=== PATIENT | male | born 1950 | race Caucasian/White ===

== ENCOUNTER 2018-10-21 16:30 | Observation (INO) ==
[2018-10-21] MEDS ORDERED: Ondansetron 4 MG/2 ML VIAL IVP PRN (18:15)
[2018-10-21] MEDS: *HR* HYDROcodone/Acet 5/325 mg TABLET PO PRN (19:02)
[2018-10-21] MEDS ORDERED: 0.9 % Sodium Chloride 500 ML IVC ONE (19:04)
[2018-10-21] MEDS: Acetaminophen 325 MG TABLET PO PRN (20:26)
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
[2018-10-21] MEDS ORDERED: *HR* Dextrose 50 % in Water (Syg) 50 ML SYRINGE IVP PRN (21:37)
[2018-10-21] MEDS ORDERED: Naloxone 0.4 MG/ML INJ IVP PRN (21:37)
[2018-10-21] MEDS ORDERED: D5% in Water 1,000 ML IVC PRN (21:37)
[2018-10-21] MEDS ORDERED: Dextrose Gel 15 GM/37.5 ML TUBE PO PRN ×2 (21:37)
[2018-10-21] MEDS ORDERED: Nitroglycerin 0.4 MG TAB.SUBL SL PRN (21:45)
[2018-10-21] MEDS ORDERED: 0.9 % Sodium Chloride 1,000 ML IVC SCH (21:45)
[2018-10-21 22:58] LABS: Estimated Average Glucose 160 mg/dl; Hemoglobin A1C 7.2 %
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
[2018-10-22] MEDS: *HR* HYDROcodone/Acet 5/325 mg TABLET PO PRN ×3 (00:57→17:42)
[2018-10-22 02:04] LABS: Hematocrit 31.1 % (37.5-50.1); Mean Corpuscular HGB Conc 32.2 g/dL (31.6-35.5); Mean Corpuscular Hemoglobin 25.8 pg (28.0-33.3); Mean Corpuscular Volume 80.4 fL (83.0-100.0); Mean Platelet Volume 10.2 fL (9.4-12.4); Platelet Count 189 K/mcL (140-400); Red Blood Count 3.87 M/mcL (4.19-5.50); Red Cell Distribution Width 14.6 % (11.5-14.5)
[2018-10-22 02:18] LABS: INR 1.1; Prothrombin Time 12.3 Seconds (9.4-12.1)
[2018-10-22 02:24] LABS: BUN/Creatinine Ratio 14 (6-26); Blood Urea Nitrogen 18 mg/dL (8-23); Calcium 8.7 mg/dL (8.6-10.3); Carbon Dioxide 24 mEq/L (23-29); Chloride 101 mEq/L (98-107); Glucose 140 mg/dL (70-105); Magnesium 1.4 mg/dL (1.6-2.6); Osmolality,Calculated 284 (280-300); Potassium 4.1 mEq/L (3.5-5.1); Sodium 135 mEq/L (136-145); eGFR For Non-African Americans 56 (> 60)
--- NOTE | 2018-10-22 08:24 | Internal Med Progress Note ---
Hospitalist Progress Note - Encounter Date of Encounter: 10/22/18 Time of Encounter: 08:20 - Subjective Interval History: Doing well, denies much pain, resting in bed, appears very comfortable. No discharge dressings on 2 areas of the left arm due to abrasive injury. He tells me there is no surgery planned today. Labs show what appears to be a microcytic anemia, will need to inquire about prior GI evaluations in the past. - Exam Vitals: Temp Pulse Resp BP Pulse Ox 98.5 F 98 16 137/76 94 10/22/18 08:03 10/22/18 08:03 10/22/18 08:03 10/22/18 08:03 10/22/18 08:03 Exam: Cardiovascular: S1 and S2, regular rate and rhythm, no murmur, no JVD. Pulmonary: Lungs clear to all leon, no tachypnea. Abdomen: Somewhat protuberant, firm, nontender, active bowel sounds, no organomegaly. Lower extremities: Left leg in a splint, moving toes without pain. Toes are warm. No discoloration. Right leg without edema. - Assessment and Plan (1) Crush injury of leg Current Visit: Yes Status: Acute (2) CAD (coronary artery disease) Current Visit: Yes Status: Chronic Assessment and Plan: He appears to have well-maintained ejection fraction of interval records, last intervention was a good urine after ago, therefore we will stop Plavix. (3) Type 2 diabetes mellitus Current Visit: Yes Status: Chronic Assessment and Plan: Appropriate control. (4) DVT prophylaxis Current Visit: Yes Status: Chronic (5) Microcytic anemia Current Visit: Yes Status: Chronic Assessment and Plan: There has been a mild, transient decrease in his hemoglobin, some of this is delusional. We will go and check iron studies. - Time Spent with Patient Total time spent is greater than 50% in coordination of care (as documented) at patient's floor/unit and/or counseling patient: Internal Medicine: Result - Labs CBC & Chem 7: 10/22/18 01:33 10/22/18 01:33 Labs: Short CBC 10/22/18 Range/Units 01:33 WBC 7.8 (4.3-11.1) K/mcL Hgb 10.0 L D (12.9-16.9) g/dL Hct 31.1 L (37.5-50.1) % Plt Count 189 (140-400) K/mcL BMP 10/22/18 01:33 Sodium 135 L Potassium 4.1 Chloride 101 Carbon Dioxide 24 BUN 18 Creatinine 1.28 Glucose 140 H Calcium 8.7 - ABG Interpretation ABG results: PT/INR, D-dimer PT 12.3 Seconds (9.4-12.1) H 10/22/18 01:33 Consult Discharge Plan - Plan Referrals: Channing De Jesus MD [Primary Care Provider] - (1) Crush injury of leg Qualifiers: Encounter type: initial encounter Laterality: left Qualified Code(s): S87.82XA - Crushing injury of left lower leg, initial encounter (2) CAD (coronary artery disease) Qualifiers: Coronary Disease-Associated Artery/Lesion type: bypass graft [place] vs. transplanted heart: [place] heart Associated angina: without angina Qualified Code(s): I25.810 - Atherosclerosis of coronary artery bypass graft(s) without angina pectoris (3) Type 2 diabetes mellitus Qualifiers: Diabetes mellitus exterminator insulin use: without exterminator use Diabetes mellitus complication status: without complication Qualified Code(s): E11.9 - Type 2 diabetes mellitus without complications
[2018-10-22] MEDS: Aspirin Enteric Coated 81 MG Tablet PO SCH (08:43)
[2018-10-22] MEDS: Insulin LISPRO 300 UNITS/3 ML VIAL SQ SCH ×3 (08:46→17:36)
[2018-10-22] MEDS: *HR* Heparin 5,000 UNIT/ML VIAL SQ SCH ×2 (08:47→17:36)
[2018-10-22 09:43] LABS: % Iron Saturation 11 % (20-55); Iron 44 mcg/dL (65-175); Transferrin 284 mg/dL (203-362)
[2018-10-22] MEDS ORDERED: Naloxone 0.4 MG/ML INJ IVP PRN (11:46)
[2018-10-22] MEDS: *HR* OxyCODONE Immed Rel 5 MG TABLET PO PRN ×2 (12:45→19:43)
--- NOTE | 2018-10-22 14:27 | Orthopedics Progress Note ---
Date of Encounter: 10/22/18 Time of Encounter: 14:25 Subjective Principal diagnosis: Left proximal tibia fracture Interval history: 10/22/2018. Patient feeling well today. Complaining of anticipated soreness in the left and right knees. No neurovascular complaints. Vital signs are stable. Patient is afebrile. Left posterior splint intact. Excellent sensation in the left toes. Toe motion good. Right knee without effusion. Tender especially along the lateral side of the right knee. Left hand with improved function. Impression: Left proximal tibia fracture, crush injury/contusion right leg Recommendation: At this time no surgical intervention is planned. We will start physical therapy for ambulation training with nonweightbearing on the left lower extremity. When the patient is stable for discharge, will need to continue with the weightbearing limitations. Will need follow-up with me in about 10 days' time. Continue with VTE prophylaxis. Objective Vital signs: Vital Signs Temp Pulse Resp BP Pulse Ox 10/22/18 11:57 97.8 F 67 16 149/83 93 10/22/18 08:03 98.5 F 98 16 137/76 94 10/22/18 04:19 97.9 F 96 16 128/79 93 10/21/18 23:36 98.2 F 101 14 102/66 96 10/21/18 19:00 96/61 10/21/18 18:16 97.4 F L 98 16 100/65 98 Intake and Output 10/21/18 10/22/18 10/22/18 23:59 07:59 15:59 Intake Total 300 / 300 0 / 0 200 / 200 Output Total 0 / 0 575 / 575 700 / 700 Balance 300 / 300 -575 / -575 -500 / -500 Intake: Oral 300 / 300 0 / 0 200 / 200 Output: Urine 0 / 0 575 / 575 700 / 700 Other: Meal Lunch Percent of Meal Consumed 90% Weight 80.2 kg 80.36 kg Blood Glucose* 156 174 Patient Weight 10/22/18 23:59 Weight 80.36 kg - Labs CBC & BMP: 10/22/18 01:33 10/22/18 01:33 Labs: Abnormal lab results RBC 3.87 M/mcL (4.19-5.50) L 10/22/18 01:33 Hgb 10.0 g/dL (12.9-16.9) L D 10/22/18 01:33 Hct 31.1 % (37.5-50.1) L 10/22/18 01:33 MCV 80.4 fL (83.0-100.0) L 10/22/18 01:33 MCH 25.8 pg (28.0-33.3) L 10/22/18 01:33 RDW 14.6 % (11.5-14.5) H 10/22/18 01:33 PT 12.3 Seconds (9.4-12.1) H 10/22/18 01:33 Sodium 135 mEq/L (136-145) L 10/22/18 01:33 Est GFR (Non-Af Amer) 56 (> 60) L 10/22/18 01:33 Glucose 140 mg/dL (70-105) H 10/22/18 01:33 POC Glucose 152 mg/dL (70-99) H 10/21/18 23:30 Hemoglobin A1c 7.2 % (-5.6) H 10/21/18 22:01 Magnesium 1.4 mg/dL (1.6-2.6) L 10/22/18 01:33 Iron 44 mcg/dL (65-175) L 10/22/18 01:33 % Saturation 11 % (20-55) L 10/22/18 01:33 Creatine Kinase 349 Units/L (30-223) H 10/22/18 01:33 Consult Discharge Plan - Plan Referrals: Channing De Jesus MD [Primary Care Provider] -
[2018-10-22] MEDS: 0.9 % Sodium Chloride 1,000 ML IVC SCH (16:04)
[2018-10-22] MEDS ORDERED: Famotidine 20 MG/2 ML VIAL IVP ONE (21:47)
[2018-10-22] MEDS ORDERED: *HR* EPINEPHrine 1 MG/ML AMPUL IM ONE (21:57)
[2018-10-22] MEDS ORDERED: Ketorolac 30 MG/ML VIAL IVP PRN (22:01)
--- NOTE | 2018-10-22 22:18 | Event Note ---
Date of Encounter: 10/22/18 Time of Encounter: 21:30 Notified by nurse that patient was stated that he felt that his throat was swelling up and he was itchy. He had received a dose of oxycodone about 1 hour previously. He has a history of getting pruritus after oxycodone but denies having breathing difficulties before. I asked the nurse to give a dose of benadryl 25mg IV and get epinephrine ready. I assessed the patient and performed an exam. He was in no acute distress and I did not note any rash/hives. Lungs sounds were clear and I did not note stridor or wheezing. Oral exam within normal limits, no tongue swelling. I placed him on oxygen and got a bedside pulse ox set up. Patient still had the sensation of swelling so we went ahead and gave epinephrine as well as the Benadryl. We also gave 20mg famotidine IV as well. Patient stated soon after that he was starting to feel better, and his throat was no longer feeling like it was swelling up. We will continue to monitor oxygen saturation and vitals closely. We will hold off on methylprednisolone for now. Patient's family at bedside, all questions answered. We will also hold on further narcotic pain medication and start Toradol IV as needed.
[2018-10-22] MEDS: methylPREDNISolone 125 MG/2 ML VIAL IVP SCH (23:03)
[2018-10-23] MEDS: methylPREDNISolone 125 MG/2 ML VIAL IVP SCH ×2 (05:20→13:08)
[2018-10-23] MEDS: *HR* Heparin 5,000 UNIT/ML VIAL SQ SCH (05:22)
[2018-10-23] MEDS: 0.9 % Sodium Chloride 1,000 ML IVC SCH (05:30)
[2018-10-23] MEDS ORDERED: Famotidine 20 MG/2 ML VIAL IVP SCH (06:00)
[2018-10-23] MEDS: Acetaminophen 325 MG TABLET PO PRN (07:26)
[2018-10-23] MEDS: Insulin LISPRO 300 UNITS/3 ML VIAL SQ SCH ×2 (09:21→13:08)
[2018-10-23] MEDS: Aspirin Enteric Coated 81 MG Tablet PO SCH (09:22)
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
--- NOTE | 2018-10-23 14:49 | Physician Discharge Referral ---
<Wei Dowell - Last Filed: 10/23/18 14:47> Home Health/Hosp Referral Info Transfer to: Home Health Attending Provider: Rose Provider in Charge Post Discharge: PCP - Diagnosis (1) Crush injury of leg Priority: Primary Status: Acute (2) Left tibial fracture Priority: Primary Status: Acute (3) Microcytic anemia Priority: Secondary Status: Chronic (4) CAD (coronary artery disease) Priority: Secondary Status: Chronic (5) Type 2 diabetes mellitus Priority: Secondary Status: Chronic (6) DVT prophylaxis Priority: Secondary Status: Chronic - Respiratory Orders Smoking Cessation: Smoking cessation has been advised. For more information, call the [place] Tobacco Quit Line at 6-622-AROZ-NOW. - Diet/Nutrition Diet/Nutrition Orders: Cardiac - Activity Activity Orders: Walker - Services Needed Following services are medically necessary services: Nursing, Physical Therapy, Occupational Therapy - Transfer Medications Prescriptions: RX: Acetaminophen [Tylenol] 650 mg PO Q6HR PRN 14 Days #112 tablet PRN Reason: Mild Pain/Fever Home Medications: RX: Aspirin [Lo-Dose Aspirin EC] 81 mg PO DAILY 11/17/16 [History] RX: Duloxetine HCl [Cymbalta] 60 mg PO DAILY 11/17/16 [History] RX: Lisinopril-HCTZ 20-12.5 [Prinzide 20-12.5] 1 tab PO DAILY 11/17/16 [History] RX: Metoprolol [Lopressor] 12.5 mg PO BID 11/17/16 [History] RX: Nitroglycerin [Nitrostat] 0.4 mg SL Q5M PRN 11/17/16 [History] RX: Simvastatin [Zocor] 40 mg PO HS 11/17/16 [History] RX: Cranberry Fruit [Cranberry] 3,200 mg PO DAILY 10/21/18 [History] RX: Esomeprazole Magnesium [Nexium] 40 mg PO DAILY 10/21/18 [History] RX: Tamsulosin HCl [Flomax] 0.4 mg PO DAILY 10/21/18 [History] RX: Ascorbic Acid [Vitamin C] 500 mg PO DAILY 10/22/18 [History] RX: Metformin HCl [Metformin ER Osmotic] 1,000 mg PO BID 10/22/18 [History] RX: Acetaminophen [Tylenol] 650 mg PO Q6HR PRN 14 Days #112 tablet 10/23/18 [Rx] Allergies/Adverse Reactions: Allergy/AdvReac Type Severity Reaction Status Date / Time oxycodone Allergy Anaphylaxis Verified 10/22/18 22:15 sulfamethoxazole Allergy Hives Verified 10/22/18 16:46 [From Bactrim] trimethoprim [From Bactrim] Allergy Hives Verified 10/22/18 16:46 metformin AdvReac Heartburn Verified 10/22/18 16:46 Certification: Further, I certify that my clinical findings support that this patient is homebound (i.e. absences from home require considerable and taxing effort and are for medical reasons or orthodoxy services or infrequently or short duration when for other reasons) because: Homebound Reason: Patient requires assistance of a person or device to safely leave home, Leaving home requires considerable and taxing effort due to condition Attestation: My signature below is to certify that this patient is under my care and that I, or nurse practitioner, or a physician's fleet assistant working with me, has a [id number] encounter with this patient. <Kenny oRse - Last Filed: 10/23/18 19:11> - Diagnosis (1) Crush injury of leg Status: Acute (2) CAD (coronary artery disease) Status: Chronic (3) Type 2 diabetes mellitus Status: Chronic (4) DVT prophylaxis Status: Chronic (5) Microcytic anemia Status: Chronic (6) Left tibial fracture Status: Acute - Respiratory Orders Smoking Cessation: Smoking cessation has been advised. For more information, call the [place] Tobacco Quit Line at 3-253-KPNJ-NOW. Certification: Further, I certify that my clinical findings support that this patient is homebound (i.e. absences from home require considerable and taxing effort and are for medical reasons or orthodoxy services or infrequently or short duration when for other reasons) because: Attestation: My signature below is to certify that this patient is under my care and that I, or nurse practitioner, or a physician's fleet assistant working with me, has a [id number] encounter with this patient. I examined this patient and my medical decision-making was reviewed with the Resident Physician. I agree with the documented findings, disposition and treatment plan as described except to the extent set forth below.
[2018-10-23 16:01] VITALS: BP 128/72
--- NOTE | 2018-10-25 17:35 | Electrocardiograph Report ---
[address] [place] [address] Test Date: 2018-10-21 Pat Name: Karel Higgins Department: 114 Room: [facility] Gender: M [employer] Machine: SHI : [id number] Requested By: Gallo Velazco Order Number: [id number] Reading MD: Laila Steven Measurements Intervals [place] Rate: 95 P: 28 NM: 150 QRS: 66 QRSD: 95 T: 34 QT: 336 QTc: 388 Interpretive Statements SINUS RHYTHM WITH SINUS ARRHYTHMIA POSSIBLE INFERIOR MYOCARDIAL INFARCTION, PROBABLY OLD WITH POSTERIOR EXTENSION Electronically Signed On 10-25-2018 17:33:44 EDT by Laila Steven
== END 2018-10-23 16:14 | disposition home health service (06) ==
LOC: 3NENU
PROVIDERS: ADMIT Internal Medicine; ATTEND Internal Medicine

== ENCOUNTER 2021-07-16 02:29 | Observation (INO) ==
[2021-07-16] MEDS ORDERED: Ondansetron 4 MG/2 ML VIAL IVP PRN (07:40)
[2021-07-16] MEDS ORDERED: Melatonin 3 MG TABLET PO PRN (07:40)
[2021-07-16] MEDS ORDERED: Naloxone 0.4 MG/ML INJ IVP PRN (07:40)
[2021-07-16] MEDS ORDERED: *HR* Heparin 5,000 UNIT/ML VIAL IVP PRN ×2 (07:53)
[2021-07-16] MEDS ORDERED: *HR* Heparin 5,000 UNIT/ML VIAL IVP ONE (07:53)
[2021-07-16] MEDS ORDERED: Heparin 25,000 UNIT/250 ML 25,000 UNIT/250 ML IV.SOLN IVC SCH (08:00)
[2021-07-16] MEDS ORDERED: D5% in Water 1,000 ML IVC PRN (08:15)
[2021-07-16] MEDS ORDERED: Dextrose Gel 15 GM/37.5 ML TUBE PO PRN ×2 (08:15)
[2021-07-16] MEDS ORDERED: *HR* Dextrose 50 % in Water (Syg) 50 ML SYRINGE IVP PRN (08:15)
[2021-07-16 08:49] LABS: Hematocrit 39.3 % (37.5-50.1); Hemoglobin 13.4 g/dL (12.9-16.9); Mean Corpuscular HGB Conc 34.1 g/dL (31.6-35.5); Mean Corpuscular Hemoglobin 28.9 pg (28.0-33.3); Mean Corpuscular Volume 84.7 fL (83.0-100.0); Mean Platelet Volume 9.9 fL (9.4-12.4); Platelet Count 199 K/mcL (140-400); Red Blood Count 4.64 M/mcL (4.19-5.50); Red Cell Distribution Width 13.4 % (11.5-14.5); White Blood Count 6.4 K/mcL (4.3-11.1)
[2021-07-16] MEDS ORDERED: Perflutren Lipid Microsphere 1.3 ML in 0.9 % Sodium Chloride 8.7 ML IVP PRN (08:53)
[2021-07-16] MEDS ORDERED: Aspirin 81 MG TAB.CHEW PO SCH (09:00)
[2021-07-16] MEDS ORDERED: Metoprolol XL (24 HR) Succ 25 MG TAB.ER.24H PO SCH (09:00)
[2021-07-16 09:10] LABS: BUN/Creatinine Ratio 19 (6-26); Blood Urea Nitrogen 24 mg/dL (8-23); Carbon Dioxide 24 mEq/L (23-29); Chloride 103 mEq/L (98-107); Glucose 126 mg/dL (70-105); Magnesium 1.5 mg/dL (1.6-2.6); Osmolality,Calculated 288 (280-300); Phosphorous 3.5 mg/dL (2.7-4.5); Potassium 3.9 mEq/L (3.5-5.1); Sodium 136 mEq/L (136-145); eGFR For African Americans > 60 (> 60); eGFR For Non-African Americans 56 (> 60)
[2021-07-16 09:19] LABS: Troponin I 0.04 ng/mL (< 0.04)
[2021-07-16 11:13] LABS: Chol/HDL Ratio 3.2 (0-4.9)
[2021-07-16 11:19] LABS: Estimated Average Glucose 134 mg/dl; Hemoglobin A1C 6.3 %
[2021-07-16 11:25] LABS: Thyroid Stimulating Hormone 1.976 mcIU/mL (0.340-5.600)
[2021-07-16] MEDS: Apixaban 5 MG TABLET PO SCH ×2 (13:26→20:38)
[2021-07-16] MEDS: Metoprolol XL (24 HR) Succ 25 MG TAB.ER.24H PO SCH (20:37)
[2021-07-17] MEDS: cefTRIAXone 1,000 MG in 0.9 % Sodium Chloride Mini Bag 100 ML IVPB SCH (07:56)
[2021-07-17] MEDS: Metoprolol XL (24 HR) Succ 25 MG TAB.ER.24H PO SCH ×2 (07:59→20:44)
[2021-07-17] MEDS: Apixaban 5 MG TABLET PO SCH ×2 (08:00→20:44)
[2021-07-17] MEDS ORDERED: DilTIAZem CD (24hr) 120 MG CAP.ER.24H PO SCH (10:15)
[2021-07-18 07:24] VITALS: BP 167/96; PULSE 90; TEMP 97.7; O2SAT 94
[2021-07-18] MEDS: Apixaban 5 MG TABLET PO SCH (07:56)
[2021-07-18] MEDS: Metoprolol XL (24 HR) Succ 25 MG TAB.ER.24H PO SCH (07:56)
[2021-07-18] MEDS: cefTRIAXone 1,000 MG in 0.9 % Sodium Chloride Mini Bag 100 ML IVPB SCH (07:57)
[2021-07-18] MEDS ORDERED: DilTIAZem CD (24hr) 180 MG CAP.ER.24H PO SCH (09:00)
== END 2021-07-18 11:56 | disposition home or self-care (01) ==
LOC: 2ANU → SUATTDRO 06:37
PROVIDERS: ADMIT Internal Medicine; ATTEND Internal Medicine

== ENCOUNTER 2021-08-30 20:11 | Observation (INO) ==
[2021-08-30 20:56] LABS: Basophils # 0.1 K/mcL (0.0-0.2); Basophils % 0.7 %; Eosinophils # 0.1 K/mcL (0.0-0.6); Eosinophils % 1.9 %; Immature Granulocytes % 0.3 % (0-4); Lymphocytes # 2.6 K/mcL (0.6-4.6); Lymphocytes % 35.7 %; Mean Corpuscular HGB Conc 34.1 g/dL (31.6-35.5); Mean Corpuscular Hemoglobin 29.2 pg (28.0-33.3); Mean Corpuscular Volume 85.8 fL (83.0-100.0); Mean Platelet Volume 9.9 fL (9.4-12.4); Monocytes # 0.5 K/mcL (0.0-1.3); Monocytes % 6.8 %; Platelet Count 268 K/mcL (140-400); Red Blood Count 5.13 M/mcL (4.19-5.50); Red Cell Distribution Width 13.9 % (11.5-14.5); Segmented Neutrophils % 54.6 %; White Blood Count 7.3 K/mcL (4.3-11.1)
[2021-08-30] MEDS ORDERED: Ondansetron 4 MG/2 ML VIAL IVP ONE (20:59)
[2021-08-30] MEDS ORDERED: Morphine Sulfate 2 MG/ML SYRINGE IVP ONE (20:59)
[2021-08-30] MEDS ORDERED: Nitroglycerin 0.4 MG TAB.SUBL SL PRN (20:59)
[2021-08-30] MEDS ORDERED: Aspirin 325 MG TABLET PO ONE ×2 (20:59→23:01)
[2021-08-30 21:18] LABS: BUN/Creatinine Ratio 22 (6-26); Blood Urea Nitrogen 32 mg/dL (8-23); Calcium 10.1 mg/dL (8.6-10.3); Carbon Dioxide 24 mEq/L (23-29); Chloride 101 mEq/L (98-107); Glucose 155 mg/dL (70-105); Osmolality,Calculated 296 (280-300); Potassium 4.1 mEq/L (3.5-5.1); Sodium 138 mEq/L (136-145); eGFR For African Americans 59 (> 60); eGFR For Non-African Americans 48 (> 60)
[2021-08-30 21:19] LABS: Troponin I < 0.03 ng/mL (< 0.04)
[2021-08-30] MEDS ORDERED: Melatonin 3 MG TABLET PO PRN (23:36)
[2021-08-30] MEDS ORDERED: Naloxone 0.4 MG/ML INJ IVP PRN (23:36)
[2021-08-30] MEDS ORDERED: *HR* Dextrose 50 % in Water (Syg) 50 ML SYRINGE IVP PRN (23:39)
[2021-08-30] MEDS ORDERED: Dextrose Gel 15 GM/37.5 ML TUBE PO PRN ×2 (23:39)
[2021-08-30] MEDS ORDERED: D5% in Water 1,000 ML IVC PRN (23:39)
[2021-08-30] MEDS ORDERED: 0.9 % Sodium Chloride 1,000 ML IVC SCH (23:45)
[2021-08-31] MEDS: Insulin LISPRO 300 UNITS/3 ML VIAL SUBQ SCH ×4 (00:55→17:59)
[2021-08-31 05:55] LABS: Hematocrit 40.3 % (37.5-50.1); Hemoglobin 13.6 g/dL (12.9-16.9); Mean Corpuscular HGB Conc 33.7 g/dL (31.6-35.5); Mean Corpuscular Hemoglobin 29.1 pg (28.0-33.3); Mean Corpuscular Volume 86.1 fL (83.0-100.0); Mean Platelet Volume 9.7 fL (9.4-12.4); Platelet Count 209 K/mcL (140-400); Red Blood Count 4.68 M/mcL (4.19-5.50); Red Cell Distribution Width 14.1 % (11.5-14.5); White Blood Count 6.4 K/mcL (4.3-11.1)
[2021-08-31 06:38] LABS: BUN/Creatinine Ratio 24 (6-26); Blood Urea Nitrogen 33 mg/dL (8-23); Calcium 9.5 mg/dL (8.6-10.3); Carbon Dioxide 29 mEq/L (23-29); Chloride 101 mEq/L (98-107); Glucose 106 mg/dL (70-105); Magnesium 1.4 mg/dL (1.6-2.6); Osmolality,Calculated 294 (280-300); Phosphorous 4.1 mg/dL (2.7-4.5); Sodium 138 mEq/L (136-145); Troponin I < 0.03 ng/mL (< 0.04); eGFR For African Americans > 60 (> 60); eGFR For Non-African Americans 51 (> 60)
[2021-08-31] MEDS ORDERED: Aspirin 81 MG TAB.CHEW PO SCH (09:00)
[2021-08-31] MEDS: Apixaban 5 MG TABLET PO SCH ×2 (09:36→21:37)
[2021-08-31] MEDS: DilTIAZem CD (24hr) 180 MG CAP.ER.24H PO SCH (09:40)
[2021-08-31] MEDS: 0.9 % Sodium Chloride 1,000 ML IVC SCH (12:15)
[2021-09-01] MEDS: 0.9 % Sodium Chloride 1,000 ML IVC SCH (01:22)
[2021-09-01 03:01] VITALS: TEMP 97.7
[2021-09-01 06:40] LABS: Basophils % 0.7 %; Eosinophils # 0.2 K/mcL (0.0-0.6); Hematocrit 38.2 % (37.5-50.1); Hemoglobin 12.9 g/dL (12.9-16.9); Immature Granulocytes % 0.2 % (0-4); Lymphocytes # 1.9 K/mcL (0.6-4.6); Lymphocytes % 33.9 %; Mean Corpuscular HGB Conc 33.8 g/dL (31.6-35.5); Mean Corpuscular Volume 85.8 fL (83.0-100.0); Mean Platelet Volume 9.6 fL (9.4-12.4); Monocytes # 0.4 K/mcL (0.0-1.3); Monocytes % 7.2 %; Neutrophils # 3.2 K/mcL (1.6-8.9); Platelet Count 186 K/mcL (140-400); Red Blood Count 4.45 M/mcL (4.19-5.50); Red Cell Distribution Width 13.8 % (11.5-14.5); White Blood Count 5.7 K/mcL (4.3-11.1)
[2021-09-01 07:09] LABS: BUN/Creatinine Ratio 19 (6-26); Blood Urea Nitrogen 21 mg/dL (8-23); Calcium 8.5 mg/dL (8.6-10.3); Carbon Dioxide 25 mEq/L (23-29); Chloride 107 mEq/L (98-107); Glucose 130 mg/dL (70-105); Magnesium 1.7 mg/dL (1.6-2.6); Osmolality,Calculated 293 (280-300); Phosphorous 2.5 mg/dL (2.7-4.5); Sodium 139 mEq/L (136-145); eGFR For African Americans > 60 (> 60); eGFR For Non-African Americans > 60 (> 60)
[2021-09-01 07:29] VITALS: O2SAT 95
[2021-09-01] MEDS ORDERED: Insulin LISPRO 300 UNITS/3 ML VIAL SUBQ SCH ×2 (07:30→21:00)
[2021-09-01] MEDS ORDERED: Metoprolol XL (24 HR) Succ 50 MG TAB.ER.24H PO SCH (09:00)
[2021-09-01 09:12] VITALS: BP 160/93; PULSE 95
[2021-09-01] MEDS: DilTIAZem CD (24hr) 180 MG CAP.ER.24H PO SCH (09:25)
[2021-09-01] MEDS: Apixaban 5 MG TABLET PO SCH (09:25)
== END 2021-09-01 12:41 | disposition home or self-care (01) ==
LOC: EMEROOARM 20:11 → 3BNU 20:11 → SUATTDRO 23:44 → 3BNU 08-31 00:16
PROVIDERS: ADMIT Internal Medicine; ATTEND Internal Medicine

== ENCOUNTER 2021-12-07 09:00 | Observation (INO) ==
[2021-12-07 10:07] VITALS: BP 105/68; PULSE 93; O2SAT 96
[2021-12-07 10:10] VITALS: TEMP 97.5
[2021-12-07] MEDS ORDERED: Naloxone 0.4 MG/ML INJ IVP PRN (10:32)
[2021-12-07 11:10] LABS: Calcium 9.3 mg/dL (8.6-10.3); Magnesium 1.5 mg/dL (1.6-2.6); Potassium 4.6 mEq/L (3.5-5.1)
[2021-12-07] MEDS ORDERED: *HR* Amiodarone 200 MG TABLET PO SCH (21:00)
== END 2021-12-07 17:19 | disposition home or self-care (01) ==
LOC: 3BNU
PROVIDERS: ADMIT Internal Medicine Clinical Cardiac Electrophysiology; ATTEND Internal Medicine Clinical Cardiac Electrophysiology

== ENCOUNTER 2022-02-09 16:13 | Observation (INO) ==
[2022-02-09 17:48] LABS: Basophils % 0.3 %; Eosinophils # 0.1 K/mcL (0.0-0.6); Eosinophils % 0.5 %; Hematocrit 36.6 % (37.5-50.1); Hemoglobin 12.7 g/dL (12.9-16.9); Immature Granulocytes % 0.7 % (0-4); Lymphocytes # 1.7 K/mcL (0.6-4.6); Lymphocytes % 17.7 %; Mean Corpuscular HGB Conc 34.7 g/dL (31.6-35.5); Mean Corpuscular Hemoglobin 30.8 pg (28.0-33.3); Mean Corpuscular Volume 88.6 fL (83.0-100.0); Mean Platelet Volume 9.4 fL (9.4-12.4); Monocytes # 0.7 K/mcL (0.0-1.3); Neutrophils # 7.3 K/mcL (1.6-8.9); Platelet Count 240 K/mcL (140-400); Red Blood Count 4.13 M/mcL (4.19-5.50); Red Cell Distribution Width 15.1 % (11.5-14.5); Segmented Neutrophils % 73.8 %; White Blood Count 9.8 K/mcL (4.3-11.1)
[2022-02-09 18:21] LABS: BUN/Creatinine Ratio 22 (6-26); Blood Urea Nitrogen 48 mg/dL (8-23); Calcium 9.8 mg/dL (8.6-10.3); Carbon Dioxide 21 mEq/L (23-29); Chloride 100 mEq/L (98-107); Glucose 81 mg/dL (70-105); Osmolality,Calculated 290 (280-300); Potassium 4.6 mEq/L (3.5-5.1); Sodium 134 mEq/L (136-145); eGFR For African Americans 36 (> 60); eGFR For Non-African Americans 29 (> 60)
[2022-02-09 18:22] LABS: Troponin I < 0.03 ng/mL (< 0.04)
[2022-02-09] MEDS ORDERED: 0.9 % Sodium Chloride 1,000 ML IV ONE ×2 (19:25→22:10)
[2022-02-09] MEDS ORDERED: Iopamidol - 370 500 ML MLS IVP ONE ×2 (19:25→19:27)
[2022-02-09 20:48] LABS: Influenza A PCR Negative (Negative); Influenza B PCR Negative (Negative); Resp. Syncytial Virus PCR Negative (Negative)
[2022-02-09 20:50] LABS: SARS-CoV-2 by PCR (In House) Negative (Negative)
[2022-02-09 20:54] LABS: Alanine Aminotransferase 16 Units/L (7-52); Albumin 4.3 g/dL (3.5-5.7); Albumin/Globulin Ratio 1.5 (1.1-2.2); Alkaline Phosphatase 44 Units/L (34-104); Aspartate Amino Transferase 19 Units/L (13-39); Bilirubin,Indirect 0.5 mg/dL (0.0-1.0); Bilirubin,Total 0.5 mg/dL (0.3-1.0); Globulin 2.9 g/dL (2.4-3.5); Lipase 25 Units/L (11-82); Magnesium 1.4 mg/dL (1.6-2.6); Total Protein 7.2 g/dL (6.4-8.9)
[2022-02-09] MEDS ORDERED: Melatonin 3 MG TABLET PO PRN (23:18)
[2022-02-09] MEDS ORDERED: Naloxone 0.4 MG/ML INJ IVP PRN (23:18)
[2022-02-09] MEDS ORDERED: Ondansetron ODT 4 MG TAB.RAPDIS SL PRN (23:18)
[2022-02-09] MEDS ORDERED: 0.9 % Sodium Chloride 1,000 ML IVC SCH (23:30)
[2022-02-09] MEDS ORDERED: *HR* Dextrose 50 % in Water (Syg) 50 ML SYRINGE IVP PRN (23:48)
[2022-02-09] MEDS ORDERED: Dextrose Gel 15 GM/37.5 ML TUBE PO PRN ×2 (23:48)
[2022-02-09] MEDS ORDERED: D5% in Water 1,000 ML IVC PRN (23:48)
[2022-02-10 01:22] LABS: Hematocrit 32.2 % (37.5-50.1); Mean Corpuscular HGB Conc 34.5 g/dL (31.6-35.5); Mean Corpuscular Hemoglobin 30.9 pg (28.0-33.3); Mean Corpuscular Volume 89.7 fL (83.0-100.0); Mean Platelet Volume 8.9 fL (9.4-12.4); Platelet Count 164 K/mcL (140-400); Red Blood Count 3.59 M/mcL (4.19-5.50); Red Cell Distribution Width 15.3 % (11.5-14.5); White Blood Count 5.8 K/mcL (4.3-11.1)
[2022-02-10 01:27] LABS: Hemoglobin 11.1 g/dL (12.9-16.9)
[2022-02-10] MEDS ORDERED: Apixaban 5 MG TABLET PO ONE (01:33)
[2022-02-10 01:45] LABS: Estimated Average Glucose 117 mg/dl; Hemoglobin A1C 5.7 %
[2022-02-10 03:14] LABS: Bacteria,Urine Moderate per hpf (None-Few); Bilirubin,Urine Negative (Negative); Blood,Urine Negative (Negative); Clarity,Urine Turbid (Clear); Color,Urine Light-Yellow (Yellow); Glucose,Urine (UA) Normal (Normal); Hyaline Casts,Urine Few per lpf (None Seen); Ketones,Urine Negative (Negative); Leukocyte Esterase,Urine Moderate (Negative); Mucus,Urine Many per lpf (None-Few); Nitrite,Urine Negative (Negative); PH,Urine 5.5 pH Units (5.0-8.0); Protein,Urine Trace mg/dL (Neg-Trace); RBC,Urine 0-3 per hpf (0-3); Specific Gravity,Urine 1.017 (1.010-1.025); Squamous Epithelial Cell,Urine Few per hpf (None-Few); Urobilinogen,Urine Normal (Normal); WBC,Urine 30-50 per hpf (0-3)
[2022-02-10 03:30] LABS: Sodium, Urine 71.4 mEq/L
[2022-02-10 04:00] LABS: Albumin 3.6 g/dL (3.5-5.7); Albumin/Globulin Ratio 1.6 (1.1-2.2); Bilirubin,Total 0.3 mg/dL (0.3-1.0); Calcium 8.5 mg/dL (8.6-10.3); Globulin 2.3 g/dL (2.4-3.5); Phosphorous 3.5 mg/dL (2.7-4.5); Potassium 4.1 mEq/L (3.5-5.1); Total Protein 5.9 g/dL (6.4-8.9)
[2022-02-10] MEDS: *HR* Amiodarone 200 MG TABLET PO SCH (10:13)
[2022-02-10] MEDS: Apixaban 5 MG TABLET PO SCH ×2 (10:13→19:50)
[2022-02-10] MEDS: Insulin LISPRO 300 UNITS/3 ML VIAL SUBQ SCH ×4 (10:15→20:23)
[2022-02-10] MEDS: SODIUM CHLORIDE OP SCH ×2 (10:19→16:17)
[2022-02-10] MEDS: Artificial Tears SOLN 15 ML BOTTLE BOTH EYES SCH ×2 (18:18→19:50)
[2022-02-10] MEDS ORDERED: cefTRIAXone 1,000 MG in 0.9 % Sodium Chloride 10 ML IVP SCH (19:00)
[2022-02-10] MEDS: cefTRIAXone 1,000 MG in 0.9 % Sodium Chloride 10 ML IVP SCH (19:50)
[2022-02-11 02:15] LABS: Basophils % 0.3 %; Eosinophils # 0.1 K/mcL (0.0-0.6); Eosinophils % 1.1 %; Hemoglobin 11.6 g/dL (12.9-16.9); Immature Granulocytes % 0.3 % (0-4); Lymphocytes # 1.3 K/mcL (0.6-4.6); Lymphocytes % 21.2 %; Mean Corpuscular HGB Conc 34.1 g/dL (31.6-35.5); Mean Corpuscular Hemoglobin 30.6 pg (28.0-33.3); Mean Corpuscular Volume 89.7 fL (83.0-100.0); Mean Platelet Volume 9.5 fL (9.4-12.4); Monocytes # 0.5 K/mcL (0.0-1.3); Monocytes % 7.4 %; Neutrophils # 4.4 K/mcL (1.6-8.9); Platelet Count 179 K/mcL (140-400); Red Blood Count 3.79 M/mcL (4.19-5.50); Red Cell Distribution Width 15.1 % (11.5-14.5); Segmented Neutrophils % 69.7 %; White Blood Count 6.2 K/mcL (4.3-11.1)
[2022-02-11 02:38] LABS: Albumin 3.8 g/dL (3.5-5.7); Albumin/Globulin Ratio 1.5 (1.1-2.2); Bilirubin,Total 0.4 mg/dL (0.3-1.0); Calcium 8.8 mg/dL (8.6-10.3); Globulin 2.6 g/dL (2.4-3.5); Potassium 3.8 mEq/L (3.5-5.1); Total Protein 6.4 g/dL (6.4-8.9)
[2022-02-11] MEDS: Insulin LISPRO 300 UNITS/3 ML VIAL SUBQ SCH ×4 (07:51→21:58)
[2022-02-11] MEDS: *HR* Amiodarone 200 MG TABLET PO SCH (08:29)
[2022-02-11] MEDS: Apixaban 5 MG TABLET PO SCH ×2 (08:29→20:03)
[2022-02-11] MEDS: Artificial Tears SOLN 15 ML BOTTLE BOTH EYES SCH ×4 (08:31→20:04)
[2022-02-11] MEDS ORDERED: *HR* Amiodarone 200 MG TABLET PO SCH (13:15)
[2022-02-11] MEDS ORDERED: NON-FORMULARY MEDICATION 1 EACH EACH (Pantoprazole Sodium 40 MG Tablet.Dr) PO SCH (13:15)
[2022-02-11] MEDS: Metoprolol XL (24 HR) Succ 50 MG TAB.ER.24H PO SCH ×2 (13:49→20:03)
[2022-02-11] MEDS: DilTIAZem CD (24hr) 180 MG CAP.ER.24H PO SCH (13:49)
[2022-02-11] MEDS: cefTRIAXone 1,000 MG in 0.9 % Sodium Chloride 10 ML IVP SCH (20:04)
[2022-02-12 01:46] LABS: Calcium 8.2 mg/dL (8.6-10.3); Potassium 3.8 mEq/L (3.5-5.1)
[2022-02-12] MEDS: Insulin LISPRO 300 UNITS/3 ML VIAL SUBQ SCH ×2 (07:39→12:30)
[2022-02-12] MEDS ORDERED: Ringers Solution, Lactated 1,000 ML IVC SCH (08:00)
[2022-02-12] MEDS: DilTIAZem CD (24hr) 180 MG CAP.ER.24H PO SCH (08:49)
[2022-02-12] MEDS: Metoprolol XL (24 HR) Succ 50 MG TAB.ER.24H PO SCH (08:49)
[2022-02-12] MEDS: *HR* Amiodarone 200 MG TABLET PO SCH (08:49)
[2022-02-12] MEDS: Artificial Tears SOLN 15 ML BOTTLE BOTH EYES SCH ×2 (08:49→12:30)
[2022-02-12] MEDS: Apixaban 5 MG TABLET PO SCH (08:49)
[2022-02-12 11:04] VITALS: BP 102/67; PULSE 81; TEMP 98.1; O2SAT 95
== END 2022-02-12 14:06 | disposition home or self-care (01) ==
LOC: 3ANU 16:13 → EMEROOARM 16:13 → SUATTDRO 23:37 → 3ANU 02-10 00:41
PROVIDERS: ADMIT Internal Medicine; ATTEND Family Medicine

== ENCOUNTER 2022-03-02 00:23 | Observation (INO) ==
[2022-03-02 05:58] LABS: Basophils % 0.5 %; Eosinophils # 0.1 K/mcL (0.0-0.6); Eosinophils % 1.1 %; Hematocrit 32.4 % (37.5-50.1); Hemoglobin 11.2 g/dL (12.9-16.9); Immature Granulocytes % 0.6 % (0-4); Lymphocytes # 1.7 K/mcL (0.6-4.6); Lymphocytes % 26.5 %; Mean Corpuscular HGB Conc 34.6 g/dL (31.6-35.5); Mean Corpuscular Hemoglobin 31.5 pg (28.0-33.3); Monocytes # 0.6 K/mcL (0.0-1.3); Monocytes % 9.5 %; Neutrophils # 4.1 K/mcL (1.6-8.9); Platelet Count 268 K/mcL (140-400); Red Blood Count 3.56 M/mcL (4.19-5.50); Red Cell Distribution Width 14.9 % (11.5-14.5); Segmented Neutrophils % 61.8 %; White Blood Count 6.5 K/mcL (4.3-11.1)
[2022-03-02 06:20] LABS: Amphetamine Screen,Urine Negative ng/mL (Cutoff=1000)
[2022-03-02 06:21] LABS: Barbiturate Screen,Urine Negative ng/mL (Cutoff=200)
[2022-03-02 06:22] LABS: Benzodiazepines Screen,Urine Negative ng/mL (Cutoff=300); Cannabinoid Screen,Urine Negative ng/mL (Cutoff = 50); Cocaine Screen,Urine Negative ng/mL (Cutoff= 300); Opiate Screen,Urine Negative ng/mL (Cutoff=300); Phencyclidine Screen,Urine Negative ng/mL (Cutoff=25)
[2022-03-02 06:30] LABS: Bacteria,Urine Few per hpf (None-Few); Bilirubin,Urine Negative (Negative); Blood,Urine Negative (Negative); Clarity,Urine Turbid (Clear); Color,Urine Yellow (Yellow); Glucose,Urine (UA) >=1000 mg/dL (Normal); Ketones,Urine Negative (Negative); Leukocyte Esterase,Urine Large (Negative); Mucus,Urine Few per lpf (None-Few); Nitrite,Urine Positive (Negative); Protein,Urine 50 mg/dL (Neg-Trace); Specific Gravity,Urine 1.023 (1.010-1.025); Squamous Epithelial Cell,Urine Few per hpf (None-Few); Urobilinogen,Urine Normal (Normal); WBC,Urine TNTC per hpf (0-3)
[2022-03-02 06:44] LABS: Acetaminophen < 10 mcg/mL (10-20); BUN/Creatinine Ratio 23 (6-26); Blood Urea Nitrogen 35 mg/dL (8-23); Calcium 9.4 mg/dL (8.6-10.3); Carbon Dioxide 25 mEq/L (23-29); Chloride 109 mEq/L (98-107); Ethanol < 10 mg/dL (Less than 10); Glucose 78 mg/dL (70-105); Osmolality,Calculated 299 (280-300); Potassium 4.3 mEq/L (3.5-5.1); Salicylate < 2.5 mg/dL (15.0-30.0); Sodium 141 mEq/L (136-145); eGFR For African Americans 56 (> 60); eGFR For Non-African Americans 46 (> 60)
[2022-03-02] MEDS ORDERED: cefTRIAXone 1,000 MG in Water for inj. (sterile) 10 ML IVP ONE (07:07)
[2022-03-02] MEDS ORDERED: Naloxone 0.4 MG/ML INJ IVP PRN (07:28)
[2022-03-02] MEDS ORDERED: Ondansetron 4 MG/2 ML VIAL IVP PRN (07:28)
[2022-03-02] MEDS ORDERED: Acetaminophen 325 MG TABLET PO PRN (07:28)
[2022-03-02] MEDS ORDERED: D5% in Water 1,000 ML IVC PRN (07:33)
[2022-03-02] MEDS ORDERED: *HR* Dextrose 50 % in Water (Syg) 50 ML SYRINGE IVP PRN (07:33)
[2022-03-02] MEDS ORDERED: Dextrose Gel 15 GM/37.5 ML TUBE PO PRN ×2 (07:33)
[2022-03-02] MEDS ORDERED: traZODone 50 MG TABLET PO PRN (09:37)
[2022-03-02] MEDS: Insulin LISPRO 300 UNITS/3 ML VIAL SUBQ SCH ×2 (14:09→16:35)
[2022-03-02] MEDS: Apixaban 5 MG TABLET PO SCH ×2 (14:22→21:20)
[2022-03-02] MEDS: Artificial Tears SOLN 15 ML BOTTLE RIGHT EYE SCH ×3 (20:59→21:47)
[2022-03-02] MEDS: Metoprolol XL (24 HR) Succ 50 MG TAB.ER.24H PO SCH (21:20)
[2022-03-02] MEDS: *HR* Amiodarone 200 MG TABLET PO SCH (21:20)
[2022-03-02] MEDS: Ketorolac OPTH Soln 5 ML BOTTLE RIGHT EYE SCH (21:46)
[2022-03-03 04:02] LABS: Basophils % 0.7 %; Eosinophils # 0.1 K/mcL (0.0-0.6); Eosinophils % 1.2 %; Hematocrit 31.1 % (37.5-50.1); Hemoglobin 10.6 g/dL (12.9-16.9); Immature Granulocytes % 0.3 % (0-4); Lymphocytes # 1.5 K/mcL (0.6-4.6); Lymphocytes % 26.1 %; Mean Corpuscular HGB Conc 34.1 g/dL (31.6-35.5); Mean Corpuscular Hemoglobin 30.9 pg (28.0-33.3); Mean Corpuscular Volume 90.7 fL (83.0-100.0); Mean Platelet Volume 9.1 fL (9.4-12.4); Monocytes # 0.4 K/mcL (0.0-1.3); Monocytes % 7.3 %; Neutrophils # 3.7 K/mcL (1.6-8.9); Platelet Count 255 K/mcL (140-400); Red Blood Count 3.43 M/mcL (4.19-5.50); Red Cell Distribution Width 14.9 % (11.5-14.5); Segmented Neutrophils % 64.4 %; White Blood Count 5.7 K/mcL (4.3-11.1)
[2022-03-03 04:16] LABS: Calcium 8.8 mg/dL (8.6-10.3); Magnesium 1.6 mg/dL (1.6-2.6); Phosphorous 3.4 mg/dL (2.7-4.5); Potassium 3.8 mEq/L (3.5-5.1)
[2022-03-03] MEDS: Apixaban 5 MG TABLET PO SCH ×2 (06:55→21:17)
[2022-03-03] MEDS: Metoprolol XL (24 HR) Succ 50 MG TAB.ER.24H PO SCH ×2 (06:55→21:17)
[2022-03-03] MEDS: Insulin LISPRO 300 UNITS/3 ML VIAL SUBQ SCH ×3 (07:57→16:56)
[2022-03-03] MEDS: cefTRIAXone 1,000 MG in 0.9 % Sodium Chloride 10 ML IVP SCH (08:08)
[2022-03-03] MEDS: DilTIAZem CD (24hr) 180 MG CAP.ER.24H PO SCH (08:08)
[2022-03-03] MEDS: Artificial Tears SOLN 15 ML BOTTLE RIGHT EYE SCH ×4 (08:09→21:17)
[2022-03-03] MEDS: Ketorolac OPTH Soln 5 ML BOTTLE RIGHT EYE SCH ×2 (08:10→21:18)
[2022-03-03] MEDS ORDERED: QUEtiapine Fumarate 25 MG TABLET PO SCH (21:00)
[2022-03-03] MEDS: *HR* Amiodarone 200 MG TABLET PO SCH (21:17)
[2022-03-04 07:37] VITALS: BP 161/88; PULSE 92; TEMP 98; O2SAT 94
[2022-03-04] MEDS: DilTIAZem CD (24hr) 180 MG CAP.ER.24H PO SCH (08:22)
[2022-03-04] MEDS: Metoprolol XL (24 HR) Succ 50 MG TAB.ER.24H PO SCH (08:22)
[2022-03-04] MEDS: Apixaban 5 MG TABLET PO SCH (08:22)
[2022-03-04] MEDS: cefTRIAXone 1,000 MG in 0.9 % Sodium Chloride 10 ML IVP SCH (08:23)
[2022-03-04] MEDS: Insulin LISPRO 300 UNITS/3 ML VIAL SUBQ SCH (08:24)
[2022-03-04] MEDS: Ketorolac OPTH Soln 5 ML BOTTLE RIGHT EYE SCH (08:25)
[2022-03-04] MEDS: Artificial Tears SOLN 15 ML BOTTLE RIGHT EYE SCH (08:25)
[2022-03-04] MEDS ORDERED: lisinopriL 10 MG TABLET PO SCH (09:00)
== END 2022-03-04 10:25 | disposition home or self-care (01) ==
LOC: 3ANU 00:23 → EMEROOARM 00:23 → 3ANU 15:13
PROVIDERS: ADMIT Internal Medicine; ATTEND Internal Medicine

== ENCOUNTER 2022-04-18 19:47 | Inpatient (IN) ==
[2022-04-18 21:25] LABS: Basophils % 0.3 %; Eosinophils % 0.4 %; Hematocrit 34.3 % (37.5-50.1); Hemoglobin 11.4 g/dL (12.9-16.9); Immature Granulocytes % 0.3 % (0-4); Lymphocytes # 1.1 K/mcL (0.6-4.6); Lymphocytes % 11.2 %; Mean Corpuscular HGB Conc 33.2 g/dL (31.6-35.5); Mean Corpuscular Hemoglobin 30.2 pg (28.0-33.3); Mean Platelet Volume 9.2 fL (9.4-12.4); Monocytes # 0.5 K/mcL (0.0-1.3); Monocytes % 4.8 %; Neutrophils # 7.9 K/mcL (1.6-8.9); Platelet Count 322 K/mcL (140-400); Red Blood Count 3.77 M/mcL (4.19-5.50); Red Cell Distribution Width 13.5 % (11.5-14.5); White Blood Count 9.6 K/mcL (4.3-11.1)
[2022-04-18 21:32] LABS: INR 1.6; Prothrombin Time 17.9 Seconds (9.4-12.1)
[2022-04-18 21:35] LABS: Activated Partial Thrombo Time 40.5 Seconds (26.0-36.0)
[2022-04-18 21:37] LABS: BUN/Creatinine Ratio 20 (6-26); Blood Urea Nitrogen 22 mg/dL (8-23); Calcium 9.5 mg/dL (8.6-10.3); Carbon Dioxide 23 mEq/L (23-29); Chloride 102 mEq/L (98-107); Glucose 135 mg/dL (70-105); Osmolality,Calculated 285 (280-300); Potassium 3.6 mEq/L (3.5-5.1); Sodium 135 mEq/L (136-145)
[2022-04-18 21:38] LABS: Troponin I < 0.03 ng/mL (< 0.04)
[2022-04-18 21:49] LABS: Influenza A PCR Negative (Negative); Influenza B PCR Negative (Negative); Resp. Syncytial Virus PCR Negative (Negative)
[2022-04-18] MEDS ORDERED: Ipratropium/Albuterol Neb 3 ML ONE (22:16)
[2022-04-18] MEDS ORDERED: Ipratropium/Albuterol Neb 3 ML IH ONE (22:22)
[2022-04-18] MEDS ORDERED: Ondansetron 4 MG/2 ML VIAL IVP ONE (22:46)
[2022-04-18 22:47] LABS: SARS-CoV-2 by PCR (In House) Negative (Negative)
[2022-04-19] MEDS ORDERED: cefTRIAXone 1,000 MG in 0.9 % Sodium Chloride 10 ML IVP ONE (00:01)
[2022-04-19] MEDS ORDERED: Azithromycin 500 MG in 0.9 % Sodium Chloride 250 ML IVPB ONE (00:01)
[2022-04-19] MEDS: cefTRIAXone 1,000 MG in 0.9 % Sodium Chloride Mini Bag 100 ML IVPB SCH (00:05)
[2022-04-19] MEDS ORDERED: Naloxone 0.4 MG/ML INJ IVP PRN (00:44)
[2022-04-19] MEDS ORDERED: Melatonin 3 MG TABLET PO PRN (00:44)
[2022-04-19] MEDS ORDERED: Acetaminophen 325 MG TABLET PO PRN (00:44)
[2022-04-19] MEDS ORDERED: Ondansetron 4 MG/2 ML VIAL IVP PRN (00:44)
[2022-04-19] MEDS ORDERED: D5% in Water 1,000 ML IVC PRN (00:49)
[2022-04-19] MEDS ORDERED: Dextrose Gel 15 GM/37.5 ML TUBE PO PRN ×2 (00:49)
[2022-04-19] MEDS ORDERED: *HR* Dextrose 50 % in Water (Syg) 50 ML SYRINGE IVP PRN (00:49)
[2022-04-19 03:32] LABS: Hemoglobin 10.5 g/dL (12.9-16.9); Mean Corpuscular HGB Conc 32.8 g/dL (31.6-35.5); Mean Corpuscular Hemoglobin 30.2 pg (28.0-33.3); Mean Platelet Volume 9.5 fL (9.4-12.4); Platelet Count 317 K/mcL (140-400); Red Blood Count 3.48 M/mcL (4.19-5.50); Red Cell Distribution Width 13.6 % (11.5-14.5); White Blood Count 9.1 K/mcL (4.3-11.1)
[2022-04-19 03:37] LABS: INR 1.5; Prothrombin Time 17.2 Seconds (9.4-12.1)
[2022-04-19 03:40] LABS: Activated Partial Thrombo Time 39.5 Seconds (26.0-36.0)
[2022-04-19 03:47] LABS: Calcium 9.1 mg/dL (8.6-10.3); Potassium 3.5 mEq/L (3.5-5.1)
[2022-04-19] MEDS: Insulin LISPRO 300 UNITS/3 ML VIAL SUBQ SCH ×4 (06:20→20:32)
[2022-04-19] MEDS ORDERED: Ipratropium/Albuterol Neb 3 ML IH PRN (11:57)
[2022-04-19] MEDS ORDERED: Ipratropium/Albuterol Neb 3 ML IH SCH (16:00)
[2022-04-19] MEDS: Metoprolol XL (24 HR) Succ 50 MG TAB.ER.24H PO SCH (20:32)
[2022-04-20] MEDS: cefTRIAXone 1,000 MG in 0.9 % Sodium Chloride Mini Bag 100 ML IVPB SCH (00:54)
[2022-04-20] MEDS: Azithromycin 500 MG in 0.9 % Sodium Chloride 250 ML IVPB SCH (01:21)
[2022-04-20 03:15] LABS: Hematocrit 32.5 % (37.5-50.1); Hemoglobin 10.6 g/dL (12.9-16.9); Mean Corpuscular HGB Conc 32.6 g/dL (31.6-35.5); Mean Corpuscular Hemoglobin 29.9 pg (28.0-33.3); Mean Corpuscular Volume 91.8 fL (83.0-100.0); Mean Platelet Volume 9.4 fL (9.4-12.4); Platelet Count 324 K/mcL (140-400); Red Blood Count 3.54 M/mcL (4.19-5.50); Red Cell Distribution Width 13.3 % (11.5-14.5); White Blood Count 8.6 K/mcL (4.3-11.1)
[2022-04-20 03:17] LABS: INR 1.3; Prothrombin Time 14.9 Seconds (9.4-12.1)
[2022-04-20 03:38] LABS: Calcium 9.2 mg/dL (8.6-10.3)
[2022-04-20] MEDS: DilTIAZem CD (24hr) 180 MG CAP.ER.24H PO SCH (08:49)
[2022-04-20] MEDS: Metoprolol XL (24 HR) Succ 50 MG TAB.ER.24H PO SCH ×2 (08:49→20:48)
[2022-04-20] MEDS: ARIPiprazole 2 MG TABLET PO SCH (08:49)
[2022-04-20] MEDS: lisinopriL 10 MG TABLET PO SCH (08:50)
[2022-04-20] MEDS: Insulin LISPRO 300 UNITS/3 ML VIAL SUBQ SCH ×4 (08:51→20:48)
[2022-04-20] MEDS: traZODone 50 MG TABLET PO PRN (23:16)
[2022-04-21] MEDS: cefTRIAXone 1,000 MG in 0.9 % Sodium Chloride Mini Bag 100 ML IVPB SCH (00:34)
[2022-04-21] MEDS: Azithromycin 500 MG in 0.9 % Sodium Chloride 250 ML IVPB SCH (01:16)
[2022-04-21 02:49] LABS: Hematocrit 30.8 % (37.5-50.1); Hemoglobin 10.3 g/dL (12.9-16.9); Mean Corpuscular HGB Conc 33.4 g/dL (31.6-35.5); Mean Corpuscular Hemoglobin 30.4 pg (28.0-33.3); Mean Corpuscular Volume 90.9 fL (83.0-100.0); Mean Platelet Volume 9.2 fL (9.4-12.4); Platelet Count 305 K/mcL (140-400); Red Blood Count 3.39 M/mcL (4.19-5.50); Red Cell Distribution Width 13.4 % (11.5-14.5); White Blood Count 8.4 K/mcL (4.3-11.1)
[2022-04-21 02:55] LABS: INR 1.2; Prothrombin Time 13.4 Seconds (9.4-12.1)
[2022-04-21 03:08] LABS: Calcium 9.2 mg/dL (8.6-10.3); Potassium 3.8 mEq/L (3.5-5.1)
[2022-04-21] MEDS: lisinopriL 10 MG TABLET PO SCH (08:10)
[2022-04-21] MEDS: Metoprolol XL (24 HR) Succ 50 MG TAB.ER.24H PO SCH ×2 (08:10→21:33)
[2022-04-21] MEDS: DilTIAZem CD (24hr) 180 MG CAP.ER.24H PO SCH (08:10)
[2022-04-21] MEDS: Insulin LISPRO 300 UNITS/3 ML VIAL SUBQ SCH ×4 (08:11→21:32)
[2022-04-21] MEDS: ARIPiprazole 2 MG TABLET PO SCH (08:12)
[2022-04-21] MEDS ORDERED: NON-FORMULARY MEDICATION 1 EACH EACH (Pantoprazole Sodium 40 MG Tablet.Dr) PO SCH (09:00)
[2022-04-21] MEDS: traZODone 50 MG TABLET PO PRN (21:33)
[2022-04-22] MEDS: cefTRIAXone 1,000 MG in 0.9 % Sodium Chloride Mini Bag 100 ML IVPB SCH (01:15)
[2022-04-22] MEDS: Azithromycin 500 MG in 0.9 % Sodium Chloride 250 ML IVPB SCH (01:46)
[2022-04-22 05:39] LABS: Hematocrit 30.7 % (37.5-50.1); Hemoglobin 10.2 g/dL (12.9-16.9); Mean Corpuscular HGB Conc 33.2 g/dL (31.6-35.5); Mean Corpuscular Hemoglobin 30.3 pg (28.0-33.3); Mean Corpuscular Volume 91.1 fL (83.0-100.0); Platelet Count 307 K/mcL (140-400); Red Blood Count 3.37 M/mcL (4.19-5.50); Red Cell Distribution Width 13.3 % (11.5-14.5); White Blood Count 6.9 K/mcL (4.3-11.1)
[2022-04-22 05:50] LABS: INR 1.2
[2022-04-22 06:00] LABS: Calcium 9.1 mg/dL (8.6-10.3); Potassium 3.8 mEq/L (3.5-5.1)
[2022-04-22] MEDS: Metoprolol XL (24 HR) Succ 50 MG TAB.ER.24H PO SCH ×2 (08:39→20:24)
[2022-04-22] MEDS: ARIPiprazole 2 MG TABLET PO SCH (08:39)
[2022-04-22] MEDS: Insulin LISPRO 300 UNITS/3 ML VIAL SUBQ SCH ×4 (08:39→20:25)
[2022-04-22] MEDS: lisinopriL 10 MG TABLET PO SCH (08:39)
[2022-04-22] MEDS: DilTIAZem CD (24hr) 180 MG CAP.ER.24H PO SCH (08:39)
[2022-04-22] MEDS: traZODone 50 MG TABLET PO PRN (21:54)
[2022-04-23] MEDS: cefTRIAXone 1,000 MG in 0.9 % Sodium Chloride Mini Bag 100 ML IVPB SCH (00:09)
[2022-04-23 05:13] LABS: Hematocrit 29.3 % (37.5-50.1); Hemoglobin 9.5 g/dL (12.9-16.9); INR 1.1; Mean Corpuscular HGB Conc 32.4 g/dL (31.6-35.5); Mean Corpuscular Hemoglobin 29.2 pg (28.0-33.3); Mean Corpuscular Volume 90.2 fL (83.0-100.0); Platelet Count 297 K/mcL (140-400); Prothrombin Time 12.8 Seconds (9.4-12.1); Red Blood Count 3.25 M/mcL (4.19-5.50); Red Cell Distribution Width 13.4 % (11.5-14.5); White Blood Count 5.6 K/mcL (4.3-11.1)
[2022-04-23 05:16] LABS: Calcium 8.9 mg/dL (8.6-10.3)
[2022-04-23] MEDS: Insulin LISPRO 300 UNITS/3 ML VIAL SUBQ SCH ×4 (08:18→21:53)
[2022-04-23] MEDS: ARIPiprazole 10 MG TABLET PO SCH (08:51)
[2022-04-23] MEDS: DilTIAZem CD (24hr) 180 MG CAP.ER.24H PO SCH (08:51)
[2022-04-23] MEDS: Metoprolol XL (24 HR) Succ 50 MG TAB.ER.24H PO SCH ×2 (08:52→20:08)
[2022-04-23] MEDS: Azithromycin 250 MG TABLET PO SCH (08:52)
[2022-04-23] MEDS: lisinopriL 10 MG TABLET PO SCH (08:52)
[2022-04-23] MEDS ORDERED: Dexmedetomidine HCl 400 MCG/100 ML MLS IVC ONE (13:24)
[2022-04-23] MEDS ORDERED: *HR* Propofol 200 MG/20 ML VIAL IVP ONE (13:44)
[2022-04-23] MEDS ORDERED: Lidocaine -MPF 2% 5 ML VIAL ONE (13:44)
[2022-04-23] MEDS ORDERED: *HR* Succinylcholine 200 MG/10 ML VIAL IVP ONE (13:46)
[2022-04-23] MEDS ORDERED: Albuterol 2.5 MG/3 ML NEBULIZER IH PRN (14:28)
[2022-04-23] MEDS ORDERED: Ondansetron 4 MG/2 ML VIAL IVP PRN (14:28)
[2022-04-23] MEDS ORDERED: Iopamidol - 370 500 ML MLS IVP ONE ×2 (16:36→16:53)
[2022-04-23] MEDS: traZODone 50 MG TABLET PO PRN (21:52)
[2022-04-24] MEDS: cefTRIAXone 1,000 MG in 0.9 % Sodium Chloride Mini Bag 100 ML IVPB SCH (00:33)
[2022-04-24 02:46] LABS: Hematocrit 30.5 % (37.5-50.1); Hemoglobin 9.7 g/dL (12.9-16.9); Mean Corpuscular HGB Conc 31.8 g/dL (31.6-35.5); Mean Corpuscular Hemoglobin 29.8 pg (28.0-33.3); Mean Corpuscular Volume 93.6 fL (83.0-100.0); Mean Platelet Volume 9.1 fL (9.4-12.4); Platelet Count 339 K/mcL (140-400); Red Blood Count 3.26 M/mcL (4.19-5.50); Red Cell Distribution Width 13.2 % (11.5-14.5); White Blood Count 4.3 K/mcL (4.3-11.1)
[2022-04-24 02:59] LABS: Calcium 8.7 mg/dL (8.6-10.3); INR 1.1; Potassium 4.5 mEq/L (3.5-5.1); Prothrombin Time 12.3 Seconds (9.4-12.1)
[2022-04-24 07:55] VITALS: BP 147/84; PULSE 101; TEMP 98.3; O2SAT 92
[2022-04-24] MEDS ORDERED: Apixaban 5 MG TABLET PO SCH (09:00)
[2022-04-24] MEDS: Azithromycin 250 MG TABLET PO SCH (09:52)
[2022-04-24] MEDS: lisinopriL 10 MG TABLET PO SCH (09:52)
[2022-04-24] MEDS: ARIPiprazole 10 MG TABLET PO SCH (09:52)
[2022-04-24] MEDS: DilTIAZem CD (24hr) 180 MG CAP.ER.24H PO SCH (09:52)
[2022-04-24] MEDS: Metoprolol XL (24 HR) Succ 50 MG TAB.ER.24H PO SCH (09:53)
[2022-04-24] MEDS: Insulin LISPRO 300 UNITS/3 ML VIAL SUBQ SCH (09:53)
[2022-04-24 10:50] LABS: Influenza A PCR Negative (Negative); Influenza B PCR Negative (Negative); Resp. Syncytial Virus PCR Negative (Negative)
[2022-04-24 10:57] LABS: SARS-CoV-2 by PCR (In House) Negative (Negative)
[2022-04-24 12:16] LABS: Source of Body Fluid RML BAL
[2022-04-24 15:16] LABS: Appearance of Body Fluid Slightly Hazy (Clear); Volume of Body Fluid 10 mL
== END 2022-04-24 11:00 | disposition home or self-care (01) | DRG 193 ==
LOC: 2NENU 19:47 → EMEROOARM 19:47 → SUATTDRO 04-19 00:51 → 2NENU 04-19 01:30 → SUATTDRO 04-19 14:29
PROVIDERS: ADMIT Internal Medicine; ATTEND Internal Medicine